=== PATIENT | male | born 1955 | race Caucasian/White ===

== ENCOUNTER 2016-06-13 16:21 | Inpatient (IN) | payer MEDICARE, MEDICAID ==
[~2016-06-13] VITALS: Ht 170.2 cm; Wt 53.1 kg
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
--- NOTE | ~2016-06-13 | CON ---
PATIENT'S NAME: FUNMI MEYERS [facility] AGE: 60 Y [address] ROOM: [place] [address] LOCATION: [facility] ADMIT DATE: 06/13/2016 Consultation DISCHARGE DATE: FAMILY PHYSICIAN: Andrew Martin MD ATTENDING PHYSICIAN: Fransico Jaramillo DATE OF CONSULTATION: 06/14/2016 REFERRING PHYSICIAN: Dr. Jaramillo. REASON FOR VISIT: Wound Care visit to evaluate and treat a left lower extremity wound and a right hip wound. HISTORY OF PRESENT ILLNESS: This is a 60-year-old male patient who was admitted to [facility] with a right hip fracture. Per previous records, the patient's caregivers were helping him off the commode when he fell against the bathtub hitting his right hip. He complained of discomfort and was unable to bear weight. He lives at [facility]. He was taken to [facility] for further evaluation. The patient underwent right hip surgery with Dr. Jaramillo today. On my evaluation, the patient is slightly drowsy from surgery. The patient is mental handicapped and has a history of aggressive behaviors, mood swings, anxiety, depression, OCD, bipolar, and borderline personality disorder. The patient is unable to provide a history. He does not know how long he has had any of his ulcerations or if they are due to his recent fall. He is hollering out for "water." PAST MEDICAL HISTORY: Mentally handicapped, aggressive issues, anxiety, mood swings, depression, OCD, bipolar, borderline personality disorder, seizures, BPH, and constipation. PAST SURGICAL HISTORY: Right wrist surgery. PAST FAMILY HISTORY: None noted on chart. The patient is unable to tell me. SOCIAL HISTORY: The patient lives at [facility] here in [place]. Per previous records, he is a nonsmoker. ALLERGIES: NO KNOWN DRUG ALLERGIES. PATIENT'S NAME: FUNMI MEYERS [facility] AGE: 60 Y [address] ROOM: [place] [address] LOCATION: [facility] ADMIT DATE: 06/13/2016 Consultation DISCHARGE DATE: FAMILY PHYSICIAN: Andrew Martin MD ATTENDING PHYSICIAN: Fransico Jaramillo CURRENT MEDICATIONS: Please refer to the medication administration record. REVIEW OF SYSTEMS: Unable to complete due to the patient's mental status. PHYSICAL EXAMINATION: VITAL SIGNS: Temperature 98.0, pulse 78, respirations 18, blood pressure 123/89, pulse oximetry 97% on room air, height 5 feet 7 inches, and weight 53.1 kg. GENERAL: The patient is alert. Requesting water. Unable to answer my questions. Slightly impulsive. At other times, he is drowsy. The patient appears thin in nature. HEENT: Head: Normocephalic, atraumatic. The patient would not let me visualize his mouth. NECK: Supple. CARDIOVASCULAR: Regular rate and rhythm. GASTROINTESTINAL: Soft and no organomegaly noted. GENITOURINARY: No groin rash noted. EXTREMITIES: +2 pedal pulses. Extremities are warm to touch. No edema noted. Bony shins. SKIN: The patient's right lateral malleolus has a small open moist pink ulcer that measures 0.5 cm width x 0.2 cm length x 0.2 cm depth. Periwound has slight skin peeling, but is intact. Scant serous exudate. Areas over the bony malleolus. The patient's left lower anterior extremity has a small skin tear. Wound bed is moist and pink. Periwound is intact. Small amount of serosanguineous exudate noted. The patient has an intact brown scab to his left dorsal foot and his left second toe. Periwound intact. The patient has an intact dressing to his right hip. His buttocks and heels are intact. LABORATORY DATA: White blood cell count 3.2, hemoglobin 12.8, hematocrit 37.9, platelets 140. Pre-albumin 22. Sodium 143, potassium 4.3, chloride 110, bicarb 26, BUN 37, creatinine 0.8, and glucose 156. ASSESSMENT AND PLAN: Again, this is a 60-year-old male patient who was admitted to [facility] with a right hip fracture. Wound Care was consulted to evaluate and assess a left lower extremity and right hip ulcer. 1. Stage II partial-thickness pressure ulcer present on admission to the patient's right lateral malleolus. This area is consistent with a pressure ulcer, as it is over the bony malleolus. The patient is unable to tell me how long he has had the ulcer and does not know of any treatments he has done to the site. For now, nursing is to apply PATIENT'S NAME: FUNMI MEYERS [facility] AGE: 60 Y [address] ROOM: [facility] [place], [place] [address] LOCATION: [facility] ADMIT DATE: 06/13/2016 Consultation DISCHARGE DATE: FAMILY PHYSICIAN: Andrew Martin MD ATTENDING PHYSICIAN: Fransico Jaramillo footdrop boots bilaterally to lower legs. The patient is to have on at all times while in bed. 2. Left lower extremity skin tear from a fall. No signs of infection noted. The area is very superficial in nature. We will keep the wound moist to encourage wound proliferation with Vaseline gauze. Nursing is to change daily. 3. Intact scabs to left foot and second toe secondary fall. He refused unroofing and was wiggling his legs during my interaction. No signs of infection noted. He will soften with Aloe [place] moisture barrier cream, which will be applied to the site b.i.d. 4. Pressure ulcer prevention to the sacrum and buttocks. Nursing is to turn the patient in bed q.2 hours and apply an Iris cushion to his chair. 5. Right hip fracture. The patient underwent surgical repair by Dr. Jaramillo today. 6. Multiple psychiatric diagnoses with intellectual disability. Hospitalist is managing I would like to thank Dr. Jaramillo for this consultation. CONSUELO SPANN APRN FOR MD JERI BURNS/laura /[id number] d: 06/14/16 2321 t: 06/28/16 1143, CONSULTATION REPORT
--- NOTE | ~2016-06-13 | ER ---
PATIENT'S NAME: FUNMI MEYERS [facility] AGE: 60 Y [address] ROOM: [place] [address] LOCATION: [facility] ADMIT DATE: 06/13/2016 ER/Outpatient Report DISCHARGE DATE: FAMILY PHYSICIAN: Andrew Martin MD ATTENDING PHYSICIAN: Fransico Jaramillo Time of Arrival: 1645 hours. Time of Evaluation: 1653 hours. CHIEF COMPLAINT: Right hip pain. HISTORY OF PRESENT ILLNESS: The patient's caregivers report about 3 o'clock this afternoon, they were assisting the patient off the commode. He was unsteady on his feet and fell against the bathtub, hitting his right hip. He has had pain and discomfort in that right hip since, unable to bear weight due to the pain. He did not hit his head. Did not fall and injure his back or neck in any way. The caregivers report no other injury. The patient does live at [facility]. ALLERGIES: HE HAS NO KNOWN ALLERGIES. CURRENT MEDICATIONS: On his chart and reviewed by me. PAST MEDICAL HISTORY: Includes intellectual disability, seizure disorder, hypothyroidism, anxiety, bipolar disorder, hypertension, osteopenia, and high cholesterol. SOCIAL HISTORY: He is a resident of [facility]. REVIEW OF SYSTEMS: All negative other than those mentioned in the HPI. PHYSICAL EXAMINATION: VITAL SIGNS: He weighs 53.1 kg, blood pressure is 127/64, pulse of 89, respirations 20, temperature of 99.6 tympanic, O2 saturations 97% on room air. GENERAL: The patient is awake and alert. He is not able to answer questions. EXTREMITIES: He is tender to touch to the right hip area. Tender to touch with his right leg. He does have strong pedal pulses. His right leg is slightly laying at an angle. LUNGS: Sounds are clear throughout. HEART: Regular rate and rhythm. ABDOMEN: Soft and nondistended. Bowel sounds are present. PATIENT'S NAME: FUNMI MEYERS [facility] AGE: 60 Y [address] ROOM: [address] [address] LOCATION: [facility] ADMIT DATE: 06/13/2016 ER/Outpatient Report DISCHARGE DATE: FAMILY PHYSICIAN: Andrew Martin MD ATTENDING PHYSICIAN: Fransico Jaramillo LABORATORY DATA AND X-RAYS: X-ray was completed. It shows a fracture of the right hip. Dr. Jaramillo was contacted. The patient's legal guardian, his sister, was contacted. Dr. Nguyen, the hospitalist, was contacted. IMPRESSION: Right hip fracture. PLAN: The patient to be admitted to the hospitalist services with Dr. Jaramillo consulting for repair of the right hip. The patient's sister is aware of the plan of care. JEAN-PIERRE SERNA APRN FOR DO ELIZABETH SOTELO/laura /[id number] d: 06/14/16 0009 t: 06/23/16 1943, OUTPATIENT REPORT
--- NOTE | ~2016-06-13 | DS ---
PATIENT'S NAME: FUNMI MEYERS [facility] AGE: 60 Y [address] ROOM: [address] [place], [place] [address] LOCATION: [facility] ADMIT DATE: 06/13/2016 Discharge Summary DISCHARGE DATE: 06/20/2016 FAMILY PHYSICIAN: Andrew Martin MD ATTENDING PHYSICIAN: Fransico Jaramillo SUMMARY The patient unfortunately on 06/19/2016. PRIMARY DIAGNOSIS: due to acute respiratory failure secondary to aspiration pneumonia. SECONDARY DIAGNOSES: 1. Mentally handicapped. 2. Borderline personality disorder. 3. Hypothyroidism. 4. Bipolar disorder. 5. Hypertension. 6. Seizure disorder. BRIEF HOSPITAL COURSE: This is a 60-year-old male patient who was admitted to the hospital following a fall in a bathtub which resulted in right intertrochanteric hip fracture. The patient had a history of bipolar disorder and also had moderate intellectual disability. He underwent surgical repair of the hip fracture with intramedullary nailing. Unfortunately, in the postoperative period, he had an episode of unresponsiveness and subsequent workup revealed a large right middle lung consolidation (aspiration pneumonia) on 06/17/2016 which was new compared to a chest x-ray done on 06/13/16. Following this, the patient became combative and there was concern for delirium. He also developed sepsis from his aspiration pneumonia and was started on antibiotics. Unfortunately,the patient continued to detoriate and his oxygen requirements continued to rise and he went into respiratory failure. The patient's code status was DNR/DNI. On the morning of June 19, the patient's condition worsened. He continued to be hypoxic in spite of nasal cannula oxygen supplementation. We had to initiate BiPAP. He also developed atrial fibrillation. Followup chest x-ray at that time revealed significant worsening of his pneumonia. The only possibility at that time was to intubate the patient, but of course, the patient was DNI. I personally called the patient's family members over the phone and advised them to come to the hospital. Detailed discussion about the patient's status was held at bedside with the patient's family members. All of them were in agreement that the patient should not be intubated and our main goal would be to make him comfortable. So we initiated Palliative Care PATIENT'S NAME: MIRA [facility] AGE: 60 Y [address] ROOM: [facility] [place] [place] [address] LOCATION: [facility] ADMIT DATE: 06/13/2016 Discharge Summary DISCHARGE DATE: 06/20/2016 FAMILY PHYSICIAN: Andrew Martin MD ATTENDING PHYSICIAN: Fransico Jaramillo /hospice care on the patient. Our Palliative Care nurses helped in the transition of care. We discontinued the patient's BiPAP, and put him back on his nasal cannula oxygen and initiated morphine for symptomatic relief. The patient continued to have worsening hypoxia and finally at 2215 hours on 06/19/2016. I personally completed his certificate as the patient while under my direct care here at the hospital. SERAFIN MARTINEZ MD AG/modl /[id number] CC: MD Andrew Bean MD David M Huebner, MD Radu F Neamu, MD d: 07/11/16 2343 t: 07/28/16 1646, DISCHARGE SUMMARY
--- NOTE | ~2016-06-13 | CON ---
PATIENT'S NAME: MIRA [facility] AGE: 60 Y [address] ROOM: [place] [address] [place] [facility]: 06/13/2016 Consultation DISCHARGE DATE: FAMILY PHYSICIAN: Andrew Martin MD ATTENDING PHYSICIAN: Fransico Jaramillo REFERRING PHYSICIAN: FRANK PATRICIA MD REQUESTING PHYSICIAN: Dr. Fransico Jaramillo. CONSULTING PHYSICIAN: Dr. Patricia. REASON FOR CONSULTATION: Medical clearance/optimization. HISTORY OF PRESENT ILLNESS: The patient is a 60-year-old male, who permanently disabled with multiple psychiatric/cognitive disabilities, who was brought into the hospital after sustaining a fall with right hip pain. X-rays showed right hip fracture. The patient has been seen by Orthopedics, and at this point, a surgical intervention for fixation is planned for tomorrow. There is nobody in the room to provide me additional history and it is all collected from the medical documentation that accompanies the patient. At this point, the patient is only volunteering some right hip pain, but denies any shortness of breath, chest pain, or palpitations. REVIEW OF SYSTEMS: All systems have been reviewed and negative aside from pertinent positives mentioned above. PAST MEDICAL HISTORY: As extracted from accompanying documentation is positive for borderline intellectual disability, seizure disorder, hyperthyroidism, anxiety, bipolar disorder, hypertension, history of hemorrhoids, constipation, and osteopenia. PAST SURGICAL HISTORY: Unknown. CURRENT MEDICATIONS: 1. Acetaminophen. 2. Boniva. 3. Benztropine. 4. Clozaril. 5. Chlorhexidine. PATIENT'S NAME: MIRA [facility] AGE: 60 Y [address] ROOM: [place] [id number] [place] [facility]: 06/13/2016 Consultation DISCHARGE DATE: FAMILY PHYSICIAN: Andrew Martin MD ATTENDING PHYSICIAN: Fransico Jaramillo 6. Claritin. 7. Valproic acid. 8. Colace. 9. Ensure. 10. Flomax. 11. Famotidine. 12. Lamotrigine. 13. Levothyroxine. 14. Melatonin. 15. Meloxicam. 16. MiraLAX. 17. Milk of magnesia. 18. Olanzapine. 19. Primidone. 20. Pyridium. 21. Preparation H. 22. Tobramycin eyedrops. 23. VESIcare. 24. Vitamin D. 25. Zetia. SOCIAL HISTORY: Unknown due to the patient's intellectual impairments. FAMILY HISTORY: Unknown due to the patient's intellectual impairment. PHYSICAL EXAMINATION: VITAL SIGNS: At this point, his vital signs are temperature 99.2, pulse is 92, respirations are 12, blood pressure 128/65, and saturating 98% on room air. GENERAL: Appears as a somewhat underweight elderly male, in no acute distress. NEUROLOGIC: Significant for shaking, which I believe is chronic. EYES: Show pupils are equal and reactive to light. LYMPHATIC: Shows no cervical lymphadenopathy. ENDOCRINE: Shows no thyromegaly. LUNGS: Clear to auscultation. HEART: Rate is regular with no appreciable murmurs, gallops, or rubs. GI: Abdomen is soft, nontender, nondistended. : Reveals no costovertebral angle tenderness. VASCULAR: Reveals 2+ pedal pulses. SKIN: Warm and dry. MUSCULOSKELETAL: Deferred. PSYCHIATRIC: Cannot be conducted. PATIENT'S NAME: FUNMI MEYERS [facility] AGE: 60 Y [address] ROOM: [place] [address] [place] [facility]: 06/13/2016 Consultation DISCHARGE DATE: FAMILY PHYSICIAN: Andrew Martin MD ATTENDING PHYSICIAN: Fransico Jaramillo DIAGNOSTIC DATA: Studies performed in the hospital are significant for BUN of 37, albumin of 2.6, white count is 3.2, platelets are 140. EKG shows preexisting left bundle- branch block. IMPRESSION AND RECOMMENDATIONS: This is a 60-year-old male with right hip fracture. I do not believe that at this point the patient will warrant any additional medical optimization and may proceed with surgery tomorrow. We will help manage the following problems: 1. Multiple psychiatric/intellectual disabilities: We will continue him on his home regimen. 2. Chronic constipation as extracted from his medical regimen: I believe that the patient will need a more aggressive stool regimen once he is done with surgery. 3. Thrombocytopenia/leukopenia: This is mild and we will follow his counts. 4. We will get a urinalysis as well. 5. Pain control as per Orthopedics orders. Additional management will depend on his clinical course. Time dedicated to this patient's encounter is 25 minutes. MD ELIE VINCENT/laura /[id number] d: 06/14/16 0200 t: 06/21/16 0652, CONSULTATION REPORT
--- NOTE | ~2016-06-13 | NDGEN ---
PATIENT'S NAME: FUNMI MEYERS [facility] AGE: 60 Y [address] ROOM: [address] [address] LOCATION: [facility] ADMIT DATE: 06/13/2016 Neurodiagnostics DISCHARGE DATE: FAMILY PHYSICIAN: Andrew Martin MD ATTENDING PHYSICIAN: Fransico Jaramillo PROCEDURE: ELECTROENCEPHALOGRAM DATE OF PROCEDURE: 06/17/2016 INDICATIONS: For this 60-year-old male patient, who is mentally challenged who had an episode of unresponsiveness in the cafeteria or lunchroom checker. This EEG was done to rule out any evidence of background activity suggestive of epileptiform activity or seizures. This was a standard 20-lead EEG, which was done with photic stimulation. During the course of this EEG study, there was extensive movement artifact with head movement and arm movement and the patient seem to be grabbing at the leads with extensive background interference. However, a fairly good background rhythm was determined and appeared to be symmetric in all leads, but slightly slow for the patient's stated age. General background rhythm remained in the theta range of 7 to perhaps barely 8 hertz. The amplitudes were within fairly normal limits of 25 to 50 microvolts. At no time, did we see any epileptiform features such as spike or spike and sharp waves pattern and no seizures were recorded IMPRESSION: This is a slightly abnormal EEG due to background rhythm being slow likely due to the patient having an event of recent alteration in sensorium. However, the general background rhythm remained symmetric and there was no instability suggestive of epileptiform features such as spike or spike wave pattern suggesting a recent seizure and no clear seizure activity was seen. MD SARTHAK CHILDERS/laura /[id number] dtt: 06/29/16 1536 , TRINIDAD ALTAMIRANO dtd: 06/18/16 1056
--- NOTE | ~2016-06-13 | CON ---
PATIENT'S NAME: FUNMI MEYERS [facility] AGE: 60 Y [address] ROOM: [place] [address] [place] [facility] [place]: 06/13/2016 Consultation DISCHARGE DATE: FAMILY PHYSICIAN: Andrew Martin MD ATTENDING PHYSICIAN: Jeanmarie Roldan DATE OF CONSULTATION: 06/13/2016 REFERRING PHYSICIAN: FRANK PATRICIA MD CHIEF COMPLAINT: Right hip injury. HISTORY: The patient is a 60-year-old, mentally retarded male. He was at the home where he lives, in the bathroom fell onto the bathtub injuring his right hip. The patient's staff deny any other injury. The patient denies any pain with the exception of right hip. Past medical/surgical history, medications, and allergies per the H and P. PHYSICAL EXAMINATION: GENERAL: A well-developed thin male. He is mentally retarded, but does answer questions with regard to pain. He denies any other injury or pain. NECK: Supple. MUSCULOSKELETAL: No tenderness to palpation on posterior CT and L-spine. Examination of bilateral upper extremity and left lower extremity revealed no pain to palpation or range of motion. No crepitus or deformity. Extremities are grossly neurovascularly intact. Examination of the right lower extremity reveals he holds it short and externally rotated. Pain with any hip motion. The skin is intact over the hip. Nontender over the distal femur, knee, tibia, ankle, or foot. He is able to wiggle the toes. Sensation is grossly intact. X-RAYS: Three views of the right hip show a comminuted intertrochanteric right hip fracture. IMPRESSION: Right intertrochanteric hip fracture. PLAN: The patient will be admitted to Medicine with Orthopedics consulting. We will put him in Shafer's traction, pain control, n.p.o. after midnight. Recommendation is for IM nail of his right hip fracture tomorrow pending preoperative medical clearance. Risks and benefits have been explained in detail to the patient's sister and power of temp recruiter, and she has given consent. PATIENT'S NAME: FUNMI MEYERS [facility] AGE: 60 Y [address] ROOM: [place] [address] [place] [facility] [place]: 06/13/2016 Consultation DISCHARGE DATE: FAMILY PHYSICIAN: Andrew Martin MD ATTENDING PHYSICIAN: Jeanmarie Roldan JEANMARIE ROLDAN MD [facility]/modl /[id number] d: 06/13/16 2341 t: 06/25/16 1523, CONSULTATION REPORT
--- NOTE | ~2016-06-13 | CON ---
PATIENT'S NAME: [facility] AGE: 60 Y [address] ROOM: [place] [address] LOCATION: [facility] ADMIT DATE: 06/13/2016 Consultation DISCHARGE DATE: FAMILY PHYSICIAN: Andrew Martin MD ATTENDING PHYSICIAN: Fransico Jaramillo DATE OF CONSULTATION: 06/17/2016 REFERRING PHYSICIAN: FRANK PATRICIA MD LOCATION: [address] [place] [address]. REFERRING PHYSICIAN: Charis Sotelo MD This is a palliative care referral for goals of care and patient and family support. HISTORY OF PRESENT ILLNESS: This 60-year-old male was admitted on 06/13 to treat a wound on the left lower extremity. He recently had a right hip fracture with repair. He is mentally handicapped and lives in a [facility]. His hip fracture occurred when his caregivers were helping him off the commode, and he fell against the bathtub, hitting his right hip, and complained of pain and was unable to bear weight. His hip surgery was done by Dr. Jaramillo. The patient has a history of aggressive behaviors, mood swings, anxiety, depression, OCD, bipolar, and borderline personality disorder. Earlier this morning, the patient was found to be unresponsive. Rapid Response was called. A CT scan of the head was ordered which was normal and negative for any stroke symptoms. The patient was given some Narcan and is a little more awake at the present time, recognizes his family, yells out, and wanting to be just left alone. No nausea or vomiting. Eating only small amounts. CT per PE protocol was done and had no PE, but had pulmonary consolidation, mostly on right, suspicious for aspiration. CT was done due to the patient vomiting earlier that morning before being found unresponsive. PAST MEDICAL HISTORY: Mentally handicapped, aggressive issues, anxiety, mood swings, depression, OCD, bipolar, borderline personality disorder, seizures, BPH, and constipation. PAST SURGICAL HISTORY: Right wrist surgery, right hip fracture repair, hernia repair, and some teeth removed. PATIENT'S NAME: [facility] AGE: 60 Y [address] ROOM: [place] [address] LOCATION: [facility] ADMIT DATE: 06/13/2016 Consultation DISCHARGE DATE: FAMILY PHYSICIAN: Andrew Martin MD ATTENDING PHYSICIAN: Fransico Jaramillo ALLERGIES: NO KNOWN ALLERGIES. MEDICATIONS: 1. Guaifenesin 600 mg every 8 hours. 2. Zosyn 3.75 mg every 8 hours. 3. Ipratropium and albuterol q.i.d. inhalations. 4. Lamotrigine 25 mg in the a.m. 5. Clozapine 50 mg in the a.m., 125 mg at h.s. 6. Oxycodone 5 mg every 4 hours p.o. 7. Acetaminophen 500 mg q.i.d. 8. Depakote 1500 mg at h.s. 9. Melatonin 9 mg at h.s. 10. Lamictal 100 mg at h.s. 11. Tamsulosin 0.5 mg p.o. 12. Maalox 15 to 30 mg every 6 hours p.r.n. indigestion. 13. Fleet Enema p.r.n. constipation. 14. Bisacodyl 10 mg p.r.n. constipation. 15. Ondansetron 4 mg every 6 hours p.r.n. IV. 16. Milk of magnesia 30 mL p.r.n. constipation. 17. Acetaminophen 500 to 1000 mg every 6 hours p.r.n. 18. Morphine 2 to 3 mg every 2 hours IV push. 19. Vitamin D3 at 2000 units every a.m. 20. Peridex b.i.d. 21. Famotidine or Pepcid 20 mg b.i.d. 22. Depakote 1000 mg every a.m. 23. Loratadine 10 mg in the a.m. 24. Sanctura 20 mg daily. 25. Primidone 125 mg daily. 26. FiberCon one tablet every 48 hours. 27. Cogentin 2 mg t.i.d. 28. Docusate sodium 100 mg t.i.d. 29. Levothyroxine 50 mcg daily in the a.m. 30. MiraLAX 17 g b.i.d. 31. Lovenox 40 mg subcu daily x42 doses. SOCIAL HISTORY: Lives in a long-term at [facility]. Mother still living, and has one sister, lives in [place]. Mother and sister are the legal guardians. He is disabled. FAMILY HISTORY: Chart reviewed, unknown at this time. REVIEW OF SYSTEMS: PATIENT'S NAME: FUNMI MEYERS [facility] AGE: 60 Y [address] ROOM: [id number] [place], [place] [address] LOCATION: [facility] ADMIT DATE: 06/13/2016 Consultation DISCHARGE DATE: FAMILY PHYSICIAN: Andrew Martin MD ATTENDING PHYSICIAN: Fransico Jaramillo A 10-point review of systems was done and is negative except as mentioned in the HPI and listed below. GASTROINTESTINAL: Vomiting this morning, taking only bites. Last BM was 06/13. GENITOURINARY: Does have some history of dysuria, is on Flomax. PSYCHIATRIC: History of depression, OCD, personality disorders, and aggressive behaviors. PHYSICAL EXAMINATION: GENERAL: This is a frail, 60-year-old disabled individual. Gets anxious at times. VITAL SIGNS: Temperature 98.3, pulse 100, respirations 28, blood pressure 98/66, and O2 saturation is 86% on 6 L. He is 5 feet 7 inches and weighs 117 with a BMI of 18.3. GENERAL: Alert, recognizes family members. Does not answer questions appropriately. SKIN: Warm and dry. Color pale. Fingers are cool to touch. Very pale. HEENT: Head: Normocephalic and atraumatic. Sclerae are nonicteric. Conjunctivae are pale, pink. Mouth is pink and moist without exudate. RESPIRATORY: Coarse bilaterally. Breath sounds slightly labored, on 6 L of oxygen. CARDIAC: S1 and S2, without murmurs. ABDOMEN: Soft, nontender, and nondistended. NEUROLOGIC: Lethargic at times. MUSCULOSKELETAL: Appropriate range of motion. EXTREMITIES: No cyanosis, but toes and hands are very cool to touch. Palliative Performance Scale is about 20%, totally bed-bound, unable to do any activity, total care, minimal sips. Conscious level is agitated and drowsy at times. LABORATORY DATA: The pH is 7.5, pCO2 is 37, PO2 is 51, and HC03 is 28.9. AST is 70. White count is 8.7, hemoglobin 9.2, hematocrit 26.5, and 168,000 platelets. Sodium 134, potassium 4.7, BUN 33, and creatinine 0.9. Albumin 2.2. GFR is 60. IMPRESSION: 1. Pain. 2. Anxiety. 3. Constipation. 4. Aspiration. 5. Anorexia. 6. Malnutrition. 7. Lack of appetite. PATIENT'S NAME: FUNMI MEYERS [facility] AGE: 60 Y [address] ROOM: [id number] [place], [place] [address] LOCATION: [facility] ADMIT DATE: 06/13/2016 Consultation DISCHARGE DATE: FAMILY PHYSICIAN: Andrew Martin MD ATTENDING PHYSICIAN: Fransico Jaramillo PLAN: 1. Discussion of chronic disease: Met with legal guardians, Lucila Amanda and her mother Damari Trejo, Lucila's , and case work aide Wes Bravo. Discussed overall condition. Patient declining. Behavior issues are nothing new for the patient, but recent hip fracture, and has been declining since. Recently, had a Rapid Response this morning. 2. Goals of care: Discussed goals of care. The patient continues to decline. 3. Code status: The patient's code status was changed to do not resuscitate/do not intubate. They do have legal guardianship papers, and they will get them faxed over to us. Discuss the POLST form and completed a POLST form. They do not want to have tube feeding if it comes to continued aspiration. GOALS OF CARE: 1. Continue aggressive treatment, but if the patient declines, family will consider comfort cares. 2. Call Lucila if any condition changes. RECOMMENDATIONS: 1. For pain, Tylenol as scheduled. Had Roxicodone 5 x6 in the last 24 hours. 2. Anxiety: Dr. Espino has been seeing the patient in the past for his behavioral issues and has a consult to come and adjust medicines on anxiety. 3. Constipation: Has not had a bowel movement since the . May need to do a Dulcolax suppository. 4. Nausea: Zofran has been ordered. May improve with a bowel movement. 5. No spiritual needs. Support. The staff has behavioral algorithms to help with behavioral modifications when the patient gets upset. We will fax those over to help the nurses as well. We will continue to support the patient and family. Total time was 60 minutes, with 50 minutes for counseling and coordination of care. TAMIA MENJIVAR NP FOR MD RAMIREZ PIPER/laura /[id number] d: 06/18/16 1049 t: 06/22/16 1542, CONSULTATION REPORT
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
[~2016-06-13 16:21] MED LIST: BENZTROPINE MESY2 MG PO; BONIVA150 MG PO; CLARITIN10 MG PO; CLOZARIL25 M1 PO; COLACE100 MG PO; DEPAKOTE EXTEN500 MG PO; ENSURE LIQUID237 ML PO; FIBERCON1 TAB PO; FLOMAX0.4 MG PO; LAMICTAL100 MG PO; LEVOTHROID (SY50 MCG PO; MELATONIN3 MG PO; MILK OF MA400 MG/5 M PO; MIRALAX17 GM PO; MOBIC15 MG PO; MYSOLINE250 MG PO; PEPCID20 MG PO; PERIDEX15 ML PO; PREPARATION H O57 GM TOP; PYRIDIUM100 MG PO; TOBRADEX5 ML OPHTH; TYLENOL325 MG PO; VESICARE5 MG PO; VITAMIN D1000 UNIT PO; ZETIA10 MG PO; ZYPREXA10 MG PO
[2016-06-13 17:42] LABS: HEMATOCRIT 37.9 % (37.0-53.0); HEMOGLOBIN 12.8 g/dL (12.0-17.0); MCHC 33.8 gm/dL (32.0-36.5); MCV 103.6 fl (83.0-98.0); MPV 9.1 fl (9.4-12.4); PLATELET COUNT 140 K/uL (150-450); RBC 3.66 M/uL (4.00-6.00); RDW-CV 12.6 % (11.9-14.6); WBC 3.2 K/uL (4.0-11.0)
[2016-06-13 17:49] LABS: PROTIME 10.3 SECONDS (9.6-11.1); PTT 25 SECONDS (25-32)
[2016-06-13 17:58] LABS: ALBUMIN 2.6 gm/dL (3.5-5.0); ANION GAP 11.6 (10.0-19.0); BLOOD UREA NITROGEN 37 mg/dL (6-24); CALCIUM 8.2 mg/dL (8.5-10.5); CHLORIDE 110 mMol/L (96-110); CO2 26 mMol/L (22-32); CREATININE 0.8 mg/dL (0.6-1.3); ESTIMATED GFR (MDRD EQUATION) > 60; PHOSPHORUS 3.3 mg/dL (2.5-4.9); POTASSIUM 4.6 mMol/L (3.7-5.1); SODIUM 143 mMol/L (135-145)
[2016-06-13 18:14] LABS: ABSOLUTE NEUTROPHIL CT (ANC) 2.4 K/uL (1.4-9.0); BANDED NEUTROPHIL # 0.2 K/uL (0.0-0.1); BANDED NEUTROPHILS % 7 %; LYMPHOCYTE # 0.3 K/uL (0.8-4.0); LYMPHOCYTE % 9 %; MONOCYTE # 0.4 K/uL (0.0-1.0); SEGMENTED NEUTROPHIL # 2.1 K/uL (1.4-9.0); SEGMENTED NEUTROPHIL % 67 %
[2016-06-13] MEDS ORDERED: CLOZARIL25 MG PO (21:11)
[2016-06-13 22:14] LABS: BILIRUBIN URINE NEGATIVE (NEGATIVE); BLOOD URINE NEGATIVE /UL (NEGATIVE); COLOR URINE YELLOW (YELLOW); GLUCOSE URINE NEGATIVE (NEGATIVE); KETONE URINE NEGATIVE (NEGATIVE); LEUKOCYTES URINE NEGATIVE /UL (NEGATIVE); NITRITE URINE NEGATIVE (NEGATIVE); PROTEIN URINE NEGATIVE (NEGATIVE); SPEC GRAVITY URINE 1.015 (1.003-1.035); TURBIDITY URINE CLEAR (CLEAR); UROBILINOGEN URINE NORMAL (NORMAL)
--- NOTE | 2016-06-14 02:21 | NUR ---
Significant Event: PATIENT ALERT BUT IS COGNITIVELY IMPAIRED. HE DOES KNOW HE IS IN THE HOSPITAL BUT UNABLE TO STATE BIRTHDAY FOR DATE. VSS. TAKES PO WITHOUT DIFFICULTY - IS NOW NPO. CAREGIVERS STATE HE NEEDS TO BE MONITORED WITH EATING - HE TENDS TO PUT TOO MUCH IN HIS MOUTH AT A TIME. VOIDS PER URINAL WITHOUT DIFFICULTY. BEDREST - TURNED Q 2 HOURS - HE DOES PULL THE PILLOWS OUT FROM BEHIND HIM FREQUENTLY. SALINE LOCK PATENT IN HIS RIGHT HAND. CSM'S TO RIGHT LEG WNL. PAIN CONTROLLED WITH MORPINE 2 MG - WILL UPDATE ON LAST DOSE GIVEN. CAN BE COMBATIVE/UNCOOPERTIVE WITH CARES. PNEUMATICS OFF - CAUSED PATIENT TO BE EXTREMELY AGITATED. PLANS FOR OR AT 0730. PERMIT SIGNED AND CHECKLIST STARTED. NUMBERS FOR CAREGIVERS ON AD SCREEN - CAN CALL WITH BEHAVIOR ISSUES. Follow up:
--- NOTE | 2016-06-14 09:59 | NUR ---
PT TRANSFERED TO PRE-OP AT 0620 THIS AM PRIOR TO BEGINNING OF SHIFT.
--- NOTE | 2016-06-14 14:08 | NUR ---
Met with patient, sister and mom at bedside today. Introduced myself and the role of the CM department. Family is planning on patient returning to custodial at [facility] on discharge. Mainframe Programmer Analyst at [facility] is Faina and her number is [phone]. Phone call placed to Faina and discussed whether or not patient can return to their care. Faina will be at the [facility] aound 1515 today and I will meet wiht her then to discuss discharge plans.
--- NOTE | 2016-06-14 18:52 | NUR ---
Significant Event: Received from pacu @ 2069. At that time pt was very agitated, swearing. After he woke from nap was more cooperative. Percocet last @ 5765. Up in chair 2 assist, voided. Refuses foot pumps. Uses IS with encouragement. taking po fluids good. Feeds self. Pt is At times difficult to understand, will repeat more clear. Dresing c/d/i. Refuses icebag. AFO x 2 to keep pressure off heels. Has open area to R) heel. Abraision to L) mercado, covered with vasoline gauze/gauze. Uses call light. Follow up:
--- NOTE | 2016-06-15 06:23 | NUR ---
Significant Event: ALERT, PATIENT IS MR. ASSISTANCE WITH MEALS. TAKES FLUIDS AND YOGART WITH MEDS WHOLE. TAKES PERCOCET FOR PAIN RIGHT HIP X 2. WEARS AFO BOOTS X2. KEEP HEELS OFF OF BED AND ELEVATED. HAS SORE TO RIGHT HEEL,DRSGS. RIGHT HIP DRSG HAS SMALL SPOT BLOODY DRAINAGE. REFUSES ICE BAG. REFUSE TO WEAR PNEUMATICS. SAT UP IN CHAIR, 2 ASSIST WITH GAITBELT AND WALKER RETURN TO BED, SHAKY-UNSTEADY. CAN BE IMPULSIVE AT TIMES. UNABLE TO ASSESS CSM DUE TO COGNITIVE ABILITY. HARD TO UNDERSTAND AT TIMES, HAVE PATIENT REPEAT IT. PATIENT VOIDS IN URINAL AND IS INCONTINENT. WEARS DEPENDS. BEEN REPOSITIONED IN BED WITH 2 ASSIST. Follow up:
[2016-06-15 06:29] LABS: HEMOGLOBIN 8.9 g/dL (12.0-17.0)
[2016-06-15 06:32] LABS: HEMATOCRIT 25.3 % (37.0-53.0)
--- NOTE | 2016-06-15 13:58 | NUR ---
Met with patient while he was sitting in his recliner. He has not had any visitors today. I placed a call to Faina with DSN at [phone] and gave her an update on how he has done with therapies. Faina states that his room at the senior living has grab bars in the bedroom, grab bars in the bathroom, tub/shower combo with a shower bench, hand held shower head, walker, gait belt, bedside commode, and hospital bed. Faina needs to know if he is a one or two assist at night as they only have one caregiver during the overnight hours. She also would like to come and watch his therapy in order to see if they are able to meet his needs at the senior living. I will check with therapy and have El give her a call with a time for his therapy tomorrow. I will also check with nursing staff on his overnight needs.
--- NOTE | 2016-06-15 18:03 | NUR ---
Significant Event: Pt is MR. Has been cooperative with cares. Routine tylenol given @ 1700. Roxicodone last @ 1545. CSM WNL. Dressing has sml drainage. Briefs. Will let you know when he needs to void. Need to set up trays and order meals. Refuses AFO/pneumatic stockings. 2 assist to chair. Follow up:
--- NOTE | 2016-06-16 04:18 | NUR ---
Patient is alert, combative and inappropriate at times, yells out frequently and uses foul language, he has small amount of drainage to dressing to right hip , does have pressure sore to heel however yells out when trying to apply AFO boots, incontinent of urine,
[2016-06-16 06:06] LABS: HEMATOCRIT 25.8 % (37.0-53.0); HEMOGLOBIN 9.1 g/dL (12.0-17.0)
--- NOTE | 2016-06-16 13:00 | NUR ---
MEET AT BEDSIDE WITH PT AND OT ALONG WITH THE CARE GIVERS FROM [facility] BRUNILDA HAILE, THE WERE AT THE BEDSIDE WHILE PT AND OT WORKED WITH FUNMI AND THEY FELL THAT HE NEEDS TO GO TO SNF FOR SHORT STAY BEFORE RETURNING TO HIS APARTMENT. THEY DO NOT HAVE STITCHDOWN TOE FORMER STAFF THERE AT ALLTIMES AND AT THIS TIME PATIENT IS MAX OF TWO ASSIT SOMETIMES THREE. WITH TRANSFERES. THEY ARE WONDERING IF PATIENT CAN GO TO TCU FOR SHORT STAY THEY WILL HAVE STAFF PRESENT TO HELP WITH HIS CARE AND TO WORK WITH PT AND OT SO THAT THEY CAN LEARN HOW TO ASSIT FUNMI WITH TRANSFERES. I SPOKE TO SHANTI ON TCU AND SHE TELLS ME THAT SHE WILL PLACE FUNMI ON THE LIST BUT THE SOONEST THAT THEY WILL HAVE A BED IS ON TUESDAY OR TUE. HAVE UPDATED AND WILL CONT TO FOLLOW NEEDED.
--- NOTE | 2016-06-16 14:00 | NUR ---
SPOKE TO PATIENT'S SISTER DEBBIE AND HIS MOM AT THE BEDSIDE. I UPDATED THEM THAT LAURIE POTTER FEELS THAT FUNMI NEEDS SHORT STAY AT SNF AND THAT I HAVE PLACE FUNMI ON THE TCU LIST BUT THEY ARE FULL AT THIS TIME. DEBBIE AND HER MOM ARE IN AGREEMENT TO THIS AND ARE HAPPY THAT LAURIE POTTER WILL BE PART OF FUNMI'S CARE. THEY ARE OK WITH ME CHECKING INTO OTHER SNF LONG IT [place] SO THAT THE LAURIE POTTER STAFF CAN BE PART OF HIS CARE AND THEY FEEL HE NEEDS TO HAVE PRIVATE ROOM HE WOULD HANDLE ROOM MATE WELL. I MADE REFERRAL TO KAYLEEN AT ON LICENSE OF [facility] BUT THEY ARE FULL AT THIS TIME. WILL CONT TO FOLLOW NEEDED.
--- NOTE | 2016-06-16 14:54 | NUR ---
Transferred care to Wendy Olmos CM on the 3rd floor. I informed Wendy that Faina with DSN wanted to be present to [facility] when patient has PT today. I contacted El Tabares PT and he states he will be doing PT with patient at 0910 and again at 1300. I called Faina and she said she will be able to be here for the 1300 PT session. I let Faina know that I was transferring his care to a new Grants Officer and that Wendy would be following at this time. I emailed TCU at 1110 and asked that the patient be placed on the TCU waitlist as he will likely need placement before returning to the shelter. He will be difficult to placed due to his behavioral and developmental disabilities. I spoke to Wendy around 1400 and she states that she has talked with Tali Syed on TCU and they will not have a bed available until Tuesday or Tuesday of next week. Dr. Sotelo was also present and discussed the option of doing a 30 day exempt with his ID screen. Dr. Sotelo believes he likely will not need more than 30 days at TCU. Faina and telephonic nurse case managermanager pacu they will have a child care lead teacher here throughout the day time hours to assist staff with patient's care while at [facility]. Per Wendy she also said that they will be available for all of his PT sessions because they want to be able to work with him and see what they need to be doing to assure his safety when he comes back to the shelter. Wendy and I will both follow on Roman.
--- NOTE | 2016-06-16 16:54 | NUR ---
Had a phone call with Dixie at [facility] and I mentioned Roman to her. She said to go ahead and fax information to her on him. Their biggest concern is whether or not he hollers and yells. She states in the past they had a resident who hollered and yelled and this upset the other residents so they are cautious on taking one that yells. I checked with Wilda, patient's nurse and she said he yelled all night last night, but hasn't been bad today. I shared this with Dixie and faxed his information to her. Will wait to hear back from her or Raven.
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
--- NOTE | 2016-06-17 01:24 | NUR ---
PATIENT REFUSED VS THIS MORNING
--- NOTE | 2016-06-17 05:16 | NUR ---
POD#4 S/P FALL AND HIP FX AND REPAIR, INCISION TO RIGHT HIP WITH 4 SMALL AREAS OF SUTURES/STAPES IN PLACE AND COVERED WITH MEPILEX AND DSG WAS CHANGED 2X THIS SHIFT. PATIENT GIVEN JASON & TYLENOL LD @0330 DUE TO RESTLESSNESS AND IS NOW RESTING WELL IN BED. VERY PLEASANT MOST OF THE SHIFT, TAKES PILLS IN PUDDING OR YOGURT, REQUIRES ASSIST WITH ORDERING FOOD AND FEEDING. INCONT OF B&B, BUT DOES TRY TO USE THE URINAL, TOTAL LIFT TO W/C. RFA PIV SALINE LOCKED, AFOS TO BILATERAL HEELS AND IS BEING FOLLOWED BY WOC RN, BUT REFUSES THEM MOST OF THE TIME AND REFUSED VS @0100 THIS MORNING. WILL DC TO SENIOR CARE ON DISCHARGE.
[2016-06-17 05:33] LABS: HEMATOCRIT 26.6 % (37.0-53.0); HEMOGLOBIN 9.2 g/dL (12.0-17.0)
[2016-06-17 08:29] LABS: BICARBONATE 30.4 mmol/L (18.0-23.0); PCO2 34 mmHg (35-45); PO2 73 mmHg (80-90)
[2016-06-17 08:42] LABS: HEMATOCRIT 26.5 % (37.0-53.0); HEMOGLOBIN 9.2 g/dL (12.0-17.0); MCH 34.8 pg (27.0-34.0); MCHC 34.7 gm/dL (32.0-36.5); MCV 100.4 fl (83.0-98.0); MPV 9.1 fl (9.4-12.4); PLATELET COUNT 168 K/uL (150-450); RDW-CV 12.3 % (11.9-14.6); WBC 8.7 K/uL (4.0-11.0)
[2016-06-17 08:44] LABS: RBC 2.64 M/uL (4.00-6.00)
[2016-06-17 09:02] LABS: ALBUMIN 2.2 gm/dL (3.5-5.0); ALK PHOS 106 IU/L (33-138); ALT 52 IU/L (12-78); ANION GAP 13.7 (10.0-19.0); AST 70 IU/L (10-40); BLOOD UREA NITROGEN 33 mg/dL (6-24); CALCIUM 8.2 mg/dL (8.5-10.5); CHLORIDE 96 mMol/L (96-110); CO2 29 mMol/L (22-32); CREATININE 0.9 mg/dL (0.6-1.3); ESTIMATED GFR (MDRD EQUATION) > 60; POTASSIUM 4.7 mMol/L (3.7-5.1); SODIUM 134 mMol/L (135-145); TOTAL BILIRUBIN 0.4 mg/dL (0.0-1.5); TOTAL PROTEIN 5.6 g/dL (6.0-8.4)
[2016-06-17 09:21] LABS: ABSOLUTE NEUTROPHIL CT (ANC) 7.6 K/uL (1.4-9.0); BANDED NEUTROPHIL # 5.2 K/uL (0.0-0.1); BANDED NEUTROPHILS % 60 %; LYMPHOCYTE # 0.3 K/uL (0.8-4.0); LYMPHOCYTE % 4 %; MONOCYTE # 0.8 K/uL (0.0-1.0); SEGMENTED NEUTROPHIL # 2.4 K/uL (1.4-9.0); SEGMENTED NEUTROPHIL % 27 %
[2016-06-17 13:38] LABS: BICARBONATE 28.9 mmol/L (18.0-23.0); PCO2 37 mmHg (35-45); PO2 51 mmHg (80-90)
--- NOTE | 2016-06-17 14:18 | NUR ---
0815 I heard a rapid response call to patient's room so I went up to the floor to check on the status. I was informed that patient was unresponsive so a STAT CT Scan was ordered and it was likely that patient would be transferred to NTU as he was displaying with stroke like symptoms. The charge nurse Ale asked me to contact family and care givers with DSN and let them know that patient was unresponsive and going for a CT scan as he was displaying stroke like symptoms. I contacted his sister Jolanta at [phone] and shared the above information with her. She asked if she should plan on coming to [place] and I encouraged her to do so since he was unresponsive. She states she would call her mom and let her know what was going on. I asked Jolanta if she would like me to call DSN and she said yes. I contacted Faina with DSN and shared the above information with her. I told her I would call with an update as soon as I knew more. At 0950 I returned to the floor and spoke with Cyn, patient's nurse. Cyn states the CT did not show any signs of a stroke, and they were still waiting for additional tests to come back. I held patient's hand and Cyn asked him how he was doing and he responded with "fine". I placed a phone call to both Jolanta and Faina and let them know that patient was back in his room and we were still waiting on results, but he is responding to questions at this time. Both were appreciative of the call. Jolanta said she and her mom are still planning on coming to [place], but they would not leave [place] until sometime after 1100.
--- NOTE | 2016-06-17 14:50 | NUR ---
A - NUT F/U. NEEDS ASSISTANCE ORDERING MEALS & TRAY SET UP. R) HIP FX. LABS: NA 134, BUN/CR 33/0.9, ALB 2.2 MESD: ZOSYN, DEPAKOTE, BOWEL/NAUSEA, PEPCID, SYNTHROID, DIET: REG. INTAKE: BITES-100%, AVG ~54% ENSURE BID NEEDS: [id number] KCAL, 53-63 G PRO D - INADEQUATE NUTRIENT INTAKE AT TIMES R/T DECREASED APPETITE AEB INTAKE RECORD. I - GOAL FOR INTAKE 50-100% FOR DURATION OF STAY. WILL INC ENSURE TO TID M/E - WILL MONITOR INTAKE F/U IN 4-6 DAYS.
--- NOTE | 2016-06-17 18:22 | NUR ---
Significant Event: Repositions with two assist. Mepilex dressing C/D/I. Incont urine, wears breif. Unresponsive this morning, CT head negative for stroke, CT chest negative for PE. EEG, EKG and labs throughout shift. IVs to bilateral wrists saline locked. Refused Tyelnol at 1700. Tele, patient removed at 1700. Narcan at 1305, vitals until [address] Sotelo aware. Follow up:
--- NOTE | 2016-06-18 05:17 | NUR ---
DNR/DNI - PLEASE CALL SISTER DEBBIE WITH ANY CHANGES POD#4 S[facility] FX WITH RIGHT HERMELINDA FOR REPAIR, MEPILEX IN PLACE AND CDI, PATIENT HAS BEEN ON O2 SINCE YESTERDAY WHEN BECAME UNRESPONSIVE AND ABLE TO WEAN DOWN TO 4L TO MAINTAIN SATS IN THE 90'S, TELE IN PLACE RUNING TACHY IN THE 110'S, BILATERAL HAND PIVS, LEFT RUNNING NS@TKO FOR ANTIBIOTIC RIDER, RIGHT IS SALINE LOCKED. PATIENT WITH 3 EPISODES OF EMESIS THAT IS GREENISH IN COLOR, PATIENT WAS ABLE TO SIT UP WITH ASSIST AND ABLE TO TAKE MEDS CRUSHED IN YOGURT AND SMALL SIPS OF WATER. POOR PO INTAKE, INC OF B&B WITH GOOD URINE OUTPUT AND NO BM THIS SHIFT. VERY RESTLESS AND COMBATIVE AT TIMES, REPOSITIONED OFF RIGHT HIP WITH PILLOWS FOR COMFORT. CT (-) FOR CVA, CT CHEST (-) FOR PE, BUT SHOWS POSSIBLE ASPIRATION PNA. PALLIATIVE CARE CONSULT IN PLACE, MD WANTS TYLENOL ONLY AT THIS TIME FOR PAIN CONTROL.
[2016-06-18 05:28] LABS: HEMATOCRIT 23.7 % (37.0-53.0); HEMOGLOBIN 8.3 g/dL (12.0-17.0); MCH 34.9 pg (27.0-34.0); MCV 99.6 fl (83.0-98.0); MPV 9.5 fl (9.4-12.4); PLATELET COUNT 173 K/uL (150-450); RBC 2.38 M/uL (4.00-6.00); RDW-CV 12.5 % (11.9-14.6); WBC 4.1 K/uL (4.0-11.0)
[2016-06-18 05:44] LABS: ANION GAP 14.5 (10.0-19.0); BLOOD UREA NITROGEN 35 mg/dL (6-24); CALCIUM 8.3 mg/dL (8.5-10.5); CHLORIDE 99 mMol/L (96-110); CO2 27 mMol/L (22-32); CREATININE 0.7 mg/dL (0.6-1.3); ESTIMATED GFR (MDRD EQUATION) > 60; MAGNESIUM 2.6 mg/dL (1.3-2.6); PHOSPHORUS 3.9 mg/dL (2.5-4.9); POTASSIUM 4.5 mMol/L (3.7-5.1); SODIUM 136 mMol/L (135-145)
[2016-06-18 06:26] LABS: ABSOLUTE NEUTROPHIL CT (ANC) 3.4 K/uL (1.4-9.0); BANDED NEUTROPHIL # 2.1 K/uL (0.0-0.1); BANDED NEUTROPHILS % 52 %; LYMPHOCYTE # 0.2 K/uL (0.8-4.0); LYMPHOCYTE % 5 %; MONOCYTE # 0.4 K/uL (0.0-1.0); SEGMENTED NEUTROPHIL # 1.3 K/uL (1.4-9.0); SEGMENTED NEUTROPHIL % 32 %
--- NOTE | 2016-06-18 12:15 | NUR ---
PT IN FOR FX R HIP. HX SEIZURE, ANXIETY, BIPOLAR, HTN, INTELLECTUAL DISABILITY, BORDERLINE PERSONALITY DISORDER, DEPRESSION, OCD, MOOD SWINGS, AGGRESSIVE BEHAVIORS. LIVES AT [facility]. TEMPERING KILN TENDER CALLED 06/17- SATS 60s, ABGs DONE, CT SCANS NEGATIVE. PER GERMINATION TESTING MANAGER REPORT HAD AN OK NIGHT, DOWN TO 4L O2. WENT IN TO ASSESS THIS AM, MEWS SCORE 6, HRs TACHY, RR TACHY, TEMP 100.4, SATS 82% 4L. PT ALERT TO PERSON AND PLACE. STATED "HURT" AND TOUCHED HIS RIGHT HIP. GAVE MEDS CRUSHED IN YOGURT. PLACED ON 7L O2 PER MASK, NOTIFIED AND CAME IN TO SEE. STARTED ON IVF AND IV FLAGYL. CONTINUED TO MONITOR VITALS Q 1HR. SATS STABILIZED SLIGHTLY AND PLACED BACK ON NC @ 5L O2. PT BECAME MORE LETHARGIC, STILL RESPONDS TO VOICE BUT WORDS ARE INCOMPREHENSIBLE NOW. TELEMETRY CALLED X2, FIRST AT 1045 HRs 130s-150s AFIB. NOTIFIED- DIGOXIN 0.25MG GIVEN IVP X1. LAST SET OF VITALS PRIOR TO TRANSFER 87/57 125 98% 5L 97.3 34RR. NURSE TO NURSE GAVE TO YANA.
--- NOTE | 2016-06-18 14:54 | NUR ---
Significant Event: PATIENT [place] [address] [place] [address] AT 1150. HAD RECENT RT HIP FRACTURE REPAIRED. RAPID RESPONSED YESTERDAY DUE TO UNRESPONSIVENESS. WENT INTO AFIB WITH RVR WELL HAD ASPIRATED. TRANSFERED HERE TODAY. PATIENT VERY DROWSY, WILL OPEN EYES TO VOICE AND PAIN. WEAK HAND GRASPS AT TIMES, BUT WITHDRAWLS TO PAIN IN BILAT LEGS. UNABLE TO ASSESS FOR NUMBNESS/TINGLING. RT PUPIL SLUGGISH AND LEFT PUPIL BRISK. NO EDEMA NOTED. LUNGS CLEAR AND DIM, CURRENTLY ON 6 LITERS O2 VIA NASAL CANNULA. UPON ARRIVAL TO FLOOR HR 130-160'S. BP'S 80-90'S. DIGOXIN GIVEN WELL 5MG OF LOPRESSOR INITIALLY. 1 LITER NORMAL SALINE BOLUS GIVEN WELL ALBUMIN. STARTED ON CARDIZEM DRIP AT 5MG/HR, HOLD FOR HEART RATE <70. IV IN LEFT WRIST NORMAL SALINE NOW @ 200MLS/HR AND INTERMITTENT ANTIBIOTICS. IV IN RT FOREARM WITH THE CARDIZEM INFUSING. INCONTINENT OF BOWEL AND BLADDER, REG DIET WHEN MORE AWAKE, CRUSH MEDS. PATIENT HAS BEEN SO DROWSY THAT HE HAS NOT BEEN SAFE TO DRINK YET. PALLIATIVE CARE ON BOARD. NORMALLY AMBULATES WITH 2 ASSIST AND WALKER. ALARMS ON FOR SAFETY. Follow up: NEURO STATUS. AFIB. CARDIZEM DRIP.
--- NOTE | 2016-06-18 15:51 | NUR ---
MONICO Bartholomew at [facility] and they will be unable to accept patient. Will follow.
[2016-06-18 17:28] LABS: ALBUMIN 2.3 gm/dL (3.5-5.0); ANION GAP 11.1 (10.0-19.0); BLOOD UREA NITROGEN 34 mg/dL (6-24); CALCIUM 8.1 mg/dL (8.5-10.5); CHLORIDE 104 mMol/L (96-110); CO2 31 mMol/L (22-32); CREATININE 0.7 mg/dL (0.6-1.3); ESTIMATED GFR (MDRD EQUATION) > 60; MAGNESIUM 2.6 mg/dL (1.3-2.6); PHOSPHORUS 2.8 mg/dL (2.5-4.9); POTASSIUM 4.1 mMol/L (3.7-5.1); SODIUM 142 mMol/L (135-145)
[2016-06-19 04:44] LABS: HEMATOCRIT 24.6 % (37.0-53.0); HEMOGLOBIN 8.2 g/dL (12.0-17.0); MCH 34.7 pg (27.0-34.0); MCHC 33.3 gm/dL (32.0-36.5); MCV 104.2 fl (83.0-98.0); MPV 9.5 fl (9.4-12.4); PLATELET COUNT 214 K/uL (150-450); RBC 2.36 M/uL (4.00-6.00); RDW-CV 12.8 % (11.9-14.6); WBC 3.4 K/uL (4.0-11.0)
[2016-06-19 04:56] LABS: ANION GAP 14.6 (10.0-19.0); BLOOD UREA NITROGEN 33 mg/dL (6-24); CALCIUM 8.2 mg/dL (8.5-10.5); CHLORIDE 105 mMol/L (96-110); CO2 27 mMol/L (22-32); CREATININE 0.7 mg/dL (0.6-1.3); ESTIMATED GFR (MDRD EQUATION) > 60; MAGNESIUM 2.5 mg/dL (1.3-2.6); POTASSIUM 3.6 mMol/L (3.7-5.1); SODIUM 143 mMol/L (135-145)
[2016-06-19 05:13] LABS: ABSOLUTE NEUTROPHIL CT (ANC) 2.9 K/uL (1.4-9.0); BANDED NEUTROPHIL # 1.8 K/uL (0.0-0.1); BANDED NEUTROPHILS % 52 %; LYMPHOCYTE # 0.2 K/uL (0.8-4.0); LYMPHOCYTE % 7 %; MONOCYTE # 0.3 K/uL (0.0-1.0); SEGMENTED NEUTROPHIL # 1.1 K/uL (1.4-9.0); SEGMENTED NEUTROPHIL % 33 %
--- NOTE | 2016-06-19 06:59 | NUR ---
Significant Event: Alert to self. Moves all extremities spontaneously and to command. Patient has been awake and alert all shift. Has been switching between afib and sinus tachy with BBB. SBPs ranged from 120s-100s and HRs have ranged from 90s-140s; most consistently in 110s. On a cardizem gtt at 5mg/hr in right forearm. Left wrist has intermittent IV antibiotics and NS at 200ml/hr going. Takes pills crushed in applesauce. Patients oxygen has ranged from 6L NC to 10L simple mask to 15L nonrebreather. Currently patient is on 15L nonrebreather. Oxygen sats have ranged from 82-92% consistently on all levels of oxygen. When patient pulls off oxygen, Sats drop into 60s. Worked with respiratory to keep sats above 90%. Patient incontinent of urine. Follow up:
[2016-06-19 10:56] LABS: PO2 57 mmHg (80-90)
[2016-06-19 10:58] LABS: BICARBONATE 35.8 mmol/L (18.0-23.0); PCO2 47 mmHg (35-45)
[2016-06-19 11:09] LABS: HEMATOCRIT 25.9 % (37.0-53.0); HEMOGLOBIN 8.6 g/dL (12.0-17.0); MCH 33.9 pg (27.0-34.0); MCHC 33.2 gm/dL (32.0-36.5); MPV 9.8 fl (9.4-12.4); PLATELET COUNT 241 K/uL (150-450); RBC 2.54 M/uL (4.00-6.00); RDW-CV 12.6 % (11.9-14.6)
[2016-06-19 11:29] LABS: ALBUMIN 2.1 gm/dL (3.5-5.0); ALK PHOS 63 IU/L (33-138); ALT 38 IU/L (12-78); ANION GAP 10.8 (10.0-19.0); AST 43 IU/L (10-40); BLOOD UREA NITROGEN 37 mg/dL (6-24); CALCIUM 8.6 mg/dL (8.5-10.5); CHLORIDE 105 mMol/L (96-110); CO2 32 mMol/L (22-32); CREATININE 0.7 mg/dL (0.6-1.3); ESTIMATED GFR (MDRD EQUATION) > 60; MAGNESIUM 2.2 mg/dL (1.3-2.6); POTASSIUM 3.8 mMol/L (3.7-5.1); SODIUM 144 mMol/L (135-145); TOTAL PROTEIN 5.4 g/dL (6.0-8.4)
[2016-06-19 11:31] LABS: TOTAL BILIRUBIN 0.5 mg/dL (0.0-1.5)
[2016-06-19 11:47] LABS: BANDED NEUTROPHIL # 1.5 K/uL (0.0-0.1); BANDED NEUTROPHILS % 29 %; LYMPHOCYTE # 0.2 K/uL (0.8-4.0); LYMPHOCYTE % 4 %; MONOCYTE # 0.3 K/uL (0.0-1.0); SEGMENTED NEUTROPHIL # 3.1 K/uL (1.4-9.0)
[2016-06-19 11:48] LABS: ABSOLUTE NEUTROPHIL CT (ANC) 4.5 K/uL (1.4-9.0); SEGMENTED NEUTROPHIL % 61 %
--- NOTE | 2016-06-19 19:43 | NUR ---
Significant Event: Patient alert to self only. Very restless and agitated at times. Follows commands appropriately. Patient's heart rhythm is rapid a MD fred updated. Order received to titrate cardizem. Labs and chest xray ordered. BIPAP ordered due to oxygen saturation. Chest xray showed worsening pneumonia. MD spoke with patient's family and caregivers, decision made to make comfort cares. BIPAP removed at 1643. Patient on room air per patient's request. Incontinent of urine at times, uses urinal at times. Patient noted to be having significant air hunger, morphine and ativan given for comfort. IV to L) wrist, saline locked. IV to R) FA, saline locked. Follow up: Comfort cares now.
--- NOTE | 2016-06-20 01:00 | NUR ---
2205: FAMILY MEMBERS PROVIDED PILLOWS AND BLANKETS AND DENY ANY FURTHER NEEDS. PATIENT IS RESTING QUIETLY IN BED. FAMILY WISHES FOR PATIENT TO NOT BE CHANGED OR REPOSITIONED DUE TO HIM APPEARING TO BE COMFORTABLE. 2215: THIS STAFF MEMBER IS NOTIFIED FROM TELEMETRY OF PATIENT'S CEASE IN HEART RHYTHM. ASSESSMENT IS PERFORMED AND TIME OF IS ANNOUNCED TO THE FAMILY MEMBERS PRESENT. FAMILY REQUESTS TIME ALONE WITH THE PATIENT'S BODY. 2228: [facility] CONTACTED. 2243: DR. PATRICIA NOTIFIED OF THE . 2300: [facility] IS PROVIDED WITH PATIENT INFORMATION. 0000: CYNDIE WITH [facility] IS NOTIFED OF BODY BEING RELEASED. 0013: BODY LEAVES UNIT WITH SECURITY AND RN TO THE [facility] [place].
== END 2016-06-19 22:15 | disposition expired | DRG 480 ==
LOC: GACC 16:21 → GMSU 18:21 → G3N 18:21 → GNTU 06-18 11:47
PROVIDERS: Emergency Medicine; Hospitalist; Internal Medicine; Internal Medicine Cardiovascular Disease; ADMIT Orthopaedic Surgery Adult Reconstructive Orthopaedic Surgery
PROC: 0QH636Z Insertion of Intramedullary Internal Fixation Device into Right Upper Femur, Percutaneous Approach (ICD-10-PCS; principal; 2016-06-14)
DX: S72.141A Displaced intertrochanteric fracture of right femur, initial encounter for closed fracture (principal); J18.9 Pneumonia, unspecified organism; J96.01 Acute respiratory failure with hypoxia; I47.2 Ventricular tachycardia; I48.91 Unspecified atrial fibrillation; D62 Acute posthemorrhagic anemia; Z68.1 Body mass index [BMI] 19.9 or less, adult; I10 Essential (primary) hypertension; E03.9 Hypothyroidism, unspecified; F31.9 Bipolar disorder, unspecified; F41.9 Anxiety disorder, unspecified; F79 Unspecified intellectual disabilities; N40.0 Benign prostatic hyperplasia without lower urinary tract symptoms; Z51.5 Encounter for palliative care; Z66 Do not resuscitate; L89.512 Pressure ulcer of right ankle, stage 2; K59.00 Constipation, unspecified; Z79.01 Long term (current) use of anticoagulants
CPT/HCPCS: C1713; J0690; J1160; J1650; J1940; J2001; J2060; J2270; J2310; J2405; J2543; J2920; J3480; J7030; J7040; J7050; P9045